=== PATIENT | female | born 1960 ===

== ENCOUNTER 2017-10-31 02:32 | Inpatient (IN) | payer BC ==
[2017-10-30 14:21] LABS: INR 1.06
[~2017-10-31] VITALS: Ht 167.6 cm; Wt 122.9 kg
[~2017-10-31 02:32] MED LIST: ASPI-1471 PO; ASPI-757 PO; CELE-1 PO; DIA5 PO; ESOM40CA42 PO; ESTR0.62 PO; GABA-549 PO; HYDR-4308 PO; OLME1TAB69 PO; OXYC-823 PO; [UNRECOGNIZED DRUG - CODE] PO
--- NOTE | 2017-10-31 04:43 | LEVENE H&P ---
DATE OF ADMISSION: October 31, 2017 IDENTIFICATION/CHIEF COMPLAINT The patient is a 57-year-old woman with a chief complaint of right knee pain. HISTORY OF PRESENT ILLNESS The patient has a longstanding history of knee arthritis, progressively painful and debilitating, refractory to conservative care. Surgery is indicated to relieve symptoms after failure of nonoperative measures. PAST MEDICAL HISTORY Notable for hypertension. PAST SURGICAL HISTORY Notable for contralateral knee replacement, rotator cuff surgery, hysterectomy, cholecystectomy, forearm surgery and several knee scopes. FAMILY HISTORY Notable for a mother with stroke. SOCIAL HISTORY Negative for tobacco and alcohol use. REVIEW OF SYSTEMS Noncontributory. CURRENT MEDICATIONS 1. Premarin 0.03 mg p.o. daily. 2. Tribenzor 525/10, one p.o. daily. 3. Aspirin 81 mg p.o. daily. ALLERGIES LATEX, has no true drug allergies. PHYSICAL EXAMINATION GENERAL: This is a well-developed, well-nourished female who appears stated age. HEENT: Normocephalic, atraumatic. NECK: Supple. LUNGS: Clear. HEART: Regular. ABDOMEN: Soft. ORTHOPEDIC EXAMINATION: The right knee has varus deformity. Her old portals are well sealed. She has an effusion present. She is stiff at the end range. Gross stability is good. Extensor function is intact. RADIOGRAPHIC DATA Radiographs demonstrate advanced degenerative changes. ASSESSMENT Right knee degenerative joint disease, progressively painful and debilitating, refractory to conservative care. PLAN Per patient request, will proceed with total knee arthroplasty. The nature of the procedure, the risks, benefits, the anticipated rehabilitative course were reviewed. Risks include but are not limited to , major medical or anesthetic complication, infection, neurovascular injury, blood transfusion, stiffness, scarring, fracture, tendon rupture, instability, implant loosening, migration or failure, persistent or recurrent pain, need for additional surgery and other unforeseen. She understands and wishes to proceed. A signed permit is placed in the chart. No guarantees are given or implied. MORIS
[2017-10-31 06:40] VITALS: BP 128/95
[2017-10-31] MEDS ORDERED: FAMOTIDINE 20 MG TAB PO ONE (08:15)
[2017-10-31] MEDS ORDERED: ceFAZolin(*) 2GM/D5W 50ML 50 ML IVPB ONE (08:15)
[2017-10-31] MEDS ORDERED: NORMOSOL R SOLN(*) 1000 ML BAG 1,000 ML IV PRN ×3 (08:15→11:20)
[2017-10-31] MEDS ORDERED: TRANEXAMIC AC 1000 MG/10ML SDV 1,000 MG in DEXTROSE 5% 50 ML BAG 50 ML IV ONE (08:15)
[2017-10-31] MEDS ORDERED: MIDAZOLAM 2 MG/2 ML VIAL IVP PRN (08:15)
[2017-10-31] MEDS ORDERED: cloNIDine EPIDUR INJ 100MCG/ML 40 MCG, ROPIVACAINE 0.5% 20 ML VIAL 25 ML, EPINEPHrine H... INJ ONE (08:15)
[2017-10-31] MEDS ORDERED: LIDOCAINE/SOD BICARB 8.4% SYR ID ONE (08:15)
[2017-10-31] MEDS ORDERED: fentaNYL CITR 100 MCG/2 ML AMP ONE ×3 (08:37→11:22)
[2017-10-31] MEDS ORDERED: MIDAZOLAM 2 MG/2 ML VIAL ONE (08:37)
[2017-10-31] MEDS ORDERED: PROPOFOL EMUL(*) 10MG/ML 20 ML 20 ML ONE (08:38)
[2017-10-31] MEDS ORDERED: DEXAMETHASONE SOD PHOS 10MG/ML ONE (08:38)
[2017-10-31] MEDS ORDERED: MORPHINE PF 5 MG/10 ML AMP ONE (08:38)
[2017-10-31] MEDS ORDERED: LIDOCAINE MPF 1% 5 ML VIAL ONE (08:38)
[2017-10-31] MEDS ORDERED: ONDANSETRON 4 MG/2 ML VIAL ONE (08:38)
[2017-10-31] MEDS ORDERED: ARTIFICIAL TEARS OINT 7 GM 7 GM TUBE ONE (09:09)
[2017-10-31] MEDS ORDERED: PHENYLEPHRINE 10 MG/1 ML VIAL ONE (09:20)
[2017-10-31] MEDS ORDERED: LACTATED RINGER 3000 ML BAG IR ONE (09:47)
[2017-10-31] MEDS ORDERED: diphenhydrAMINE 25 MG CAP PO PRN (11:05)
[2017-10-31] MEDS ORDERED: traMADol 50 MG TAB PO PRN (11:05)
[2017-10-31] MEDS ORDERED: ACETAMINOPHEN 325 MG TAB PO PRN (11:05)
[2017-10-31] MEDS ORDERED: FLUSH 10 ML SYR IVP PRN (11:05)
[2017-10-31] MEDS ORDERED: diphenhydrAMINE 50 MG/ML VIAL IVP PRN (11:05)
[2017-10-31] MEDS ORDERED: PROMETHAZINE 25 MG/ML 1 ML AMP IVP PRN (11:05)
[2017-10-31] MEDS ORDERED: BISACODYL 10 MG SUPP PR PRN (11:05)
[2017-10-31] MEDS ORDERED: BENZOCAINE/MENTHOL 1 EACH LOZG PO PRN (11:05)
[2017-10-31] MEDS ORDERED: ZOLPIDEM TARTRATE 5 MG TAB PO PRN (11:05)
[2017-10-31] MEDS ORDERED: MAGNESIUM HYDROXIDE* 30ML UDCP PO PRN (11:05)
[2017-10-31] MEDS ORDERED: NALBUPHINE HCL 10 MG/ML AMP IVP PRN (11:15)
[2017-10-31] MEDS ORDERED: ONDANSETRON 4 MG/2 ML VIAL IVP PRN (11:15)
[2017-10-31] MEDS ORDERED: NALOXONE HCL 0.4 MG/ML VIAL IVP PRN (11:15)
[2017-10-31] MEDS ORDERED: METOCLOPRAMIDE 10 MG/2 ML SDV IVP PRN (11:15)
[2017-10-31 11:56] VITALS: BP 105/51
[2017-10-31] MEDS: APAP/HYDROCODONE 325/7.5 TAB PO PRN ×3 (12:01→21:31)
[2017-10-31] MEDS ORDERED: ASPI-757 PO (12:14)
--- NOTE | 2017-10-31 13:46 | RADIOLOGY IMAGING REPORT ---
FACILITY: [facility] - [place], [place] PATIENT NAME: Nalini Hogan : 1960 MR: [id number] V: [id number] EXAM DATE: ORDERING PHYSICIAN: SHERICE OROZCO TECHNOLOGIST: Location: [facility] Patient: Nalini Hogan : 1960 Visit/Account:[id number] Date of Sevice: 10/31/2017 Technique: KNEE LIMITED RIGHT HISTORY: R TKA Comparison studies: None FINDINGS: Present is a right knee arthroplasty. There is no acute fracture. Overall, there is gross anatomic alignment. Expected adjacent postoperative changes are noted. IMPRESSION: 1. Right knee arthroplasty without evidence of acute hardware complication. Report Dictated By: Osmani Hurd DO at 10/31/2017 1:43 PM Report E-Signed By: Osmani Hurd DO at 10/31/2017 1:44 PM [id number]
[2017-10-31] MEDS: traMADol 50 MG TAB PO PRN ×2 (14:55→21:31)
[2017-10-31] MEDS: DIAZEPAM 5 MG TAB PO PRN (14:56)
--- NOTE | 2017-10-31 15:27 | Hospitalist Progress Note ---
Subjective Progress Notes Subjective No cp/sob. No concerns from the patient or staff. EBL minimal. 1700cc of crystalloid, TXA and dexamethasone given intra-op. Physical Exam Vital Signs Date Time Temp Pulse Resp B/P (MAP) Pulse Ox O2 Delivery O2 Flow Rate FiO2 10/31/17 11:56 97.6 82 12 105/51 (69) 93 Nasal Cannula 2.0 Intake and Output 11/01/17 07:00 Intake Total 1900 ml Output Total 10 ml Balance 1890 ml Intake IV Total 1900 ml Output Urine Total 10 ml General Appearance: Alert, Awake, No Acute Distress Cardiovascular: Regular Rate and Rhythm Respiratory: Clear to Auscultation Extremities: No Edema Assessment and Plan Problems: (1) S/P knee replacement Status: Acute Assessment & Plan: No CV/pulmonary issues. No reported history of DVT/PE. The patient will be on ASA 325mg a day for 30 days after surgery for blood clot prevention. (2) Benign hypertension Status: Chronic Assessment & Plan: Continue amlodipine, olmesartan, and HCTZ with parameters. (3) History of hysterectomy Status: Chronic Assessment & Plan: She chronically takes estrogen. The increased risk of DVT after surgery with estrogen use was explained to the patient. She wants to hold off taking the estrogen for now. (4) Severe obesity (BMI >= 40) Status: Chronic Problem Qualifiers (1) S/P knee replacement: Laterality: right Qualified Codes: Z96.651 - Presence of right artificial knee joint MARLEY CORDOBA MD Oct 31, 2017 15:27
[2017-10-31] MEDS: CELECOXIB 200 MG CAP PO SCH (17:24)
[2017-10-31] MEDS: ceFAZolin 1 GM VIAL IVP SCH (17:25)
[2017-10-31 20:00] VITALS: BP 98/58
[2017-10-31 21:00] VITALS: BP 101/65
[2017-10-31] MEDS: GABAPENTIN 300 MG CAP PO SCH (21:31)
[2017-10-31 23:26] VITALS: BP 109/63
[2017-11-01] MEDS: ceFAZolin 1 GM VIAL IVP SCH ×2 (01:43→08:34)
[2017-11-01] MEDS: APAP/HYDROCODONE 325/7.5 TAB PO PRN ×3 (01:52→21:33)
[2017-11-01] MEDS: DIAZEPAM 5 MG TAB PO PRN ×3 (04:20→18:05)
[2017-11-01 04:21] VITALS: BP 114/63
--- NOTE | 2017-11-01 04:26 | LEVENE TKA ---
EVENT DATE: October 31, 2017 SURGEON: Benjamin Bedoya MD ANESTHESIOLOGIST: Joshua Ibarra MD ANESTHESIA: General plus Spinal ACCOUNTS RECEIVABLE ACCOUNTANT: DAVID Jett SILO FILLER PREOPERATIVE DIAGNOSIS Right knee degenerative joint disease. POSTOPERATIVE DIAGNOSIS Right knee degenerative joint disease. PROCEDURE PERFORMED Right total knee arthroplasty. ESTIMATED BLOOD LOSS Minimal. DRAINS None. SPECIMENS None. COMPLICATIONS No apparent. TOURNIQUET TIME 41 minutes. IMPLANTS USED REach Triathlon knee system, a 4 right PS femur, a 4 standard tibial baseplate , a 33 mm universal symmetric all polyethylene patella button and an 11 mm PS tibial tray liner. Polyethylene is X3. INDICATIONS The patient has bilateral knee arthritis. She has had successful contralateral knee replacement. She has persistent debilitating pain in the right knee that has failed to respond to conservative care. Surgery is indicated to relieve symptoms after failure of nonoperative measures. DESCRIPTION OF PROCEDURE The patient was taken to the operating room and placed supine on the operating table. General anesthesia was induced after spinal block was administered by the anesthesiologist. Antibiotics and TXA were administered IV. Right lower extremity was prepped and draped in the usual sterile fashion for knee arthroplasty. The limb was exsanguinated with an Esmarch bandage. The tourniquet was inflated to 275 mmHg. A midline longitudinal incision was made, carried down through the skin and subcutaneous tissue to the extensor mechanism. A full-thickness flap was developed far enough medially to allow medial parapatellar arthrotomy to be performed. The patella was everted. The knee was brought into a flexed position. The fat pad, anterior horns of the menisci and the cruciate ligaments were debrided. Subperiosteal capsule release was performed 1 cm around the upper plateau. A step drill was used to enter the distal femur. A 10-inch long alignment guide was used to engage the isthmus. Cut was set for 6 degrees valgus relative to the anatomic axis. A 10 mm resection block was applied, pinned. Cut was made with an oscillating saw. AP sizing guide was applied to the distal femur, positioned for 3 degrees of external rotation relative to the posterior condyles. A size 4 was optimal without risk of notching. The four-in-one cutting block was applied. Anterior , posterior, posterior chamfer and anterior chamfer cuts were made respectively. A PS block was applied, centered mediolateral. Bone was removed for the box. The trial femur had nice [id number] fit. Attention was turned to tibial preparation. The extramedullary guide was applied, positioned for varus, valgus, posterior slope and rotation. This was set to resect 9 mm from the relatively intact lateral tibial plateau. It was dropped down a couple of millimeters to ensure an adequate cut. The block was pinned. Extramedullary check was made and the cut was made with an oscillating saw. After osteophyte removal, gaps were balanced and symmetric with no additional releases required. A bit of posterior condylar bone was removed in the back to open up the posterior recess. The 4 tibial baseplate provided optimum bony coverage without soft tissue overhang. This was inserted along with a trial liner, trial femur. Knee was brought to extension. Patella was taken from a starting thickness of 20 at its thickest point to 15 with a patellar clamp and oscillating saw. The 33 provided optimum bony coverage without soft tissue overhang. Lug holes were drilled. The patella tracks nicely with the no-touch technique. No release will be required. Final tibial preparation was performed next. Position of the component was set for translation, rotation, and the keel was punched and the box was reamed. The pain cocktail was then infiltrated throughout the wound. Bone plug was placed in the femoral canal. A mix of polymethylmethacrylate was made and the components were cemented in a single stage. Once cement was fully polymerized, tourniquet was deflated. Hemostasis was ensured. The wound was copiously lavaged. The 11 PS tibial tray liner fills up the gap ideally, allowing the knee to drop to full extension without hyperextension, providing optimal soft tissue tension. The tray was lavaged and dried, and the actual liner was locked into the base plate. Joint was reduced. Arthrotomy was closed in flexion with #2 Ethibond, subcu with 3-0 Vicryl and skin with surgical reza. Xeroform was applied followed by a dry, sterile dressing and a compression wrap. The patient was awakened from the anesthesia and taken to the recovery room in stable condition , having tolerated the procedure well. Plan is for standard TK rehab protocol. [facility]
[2017-11-01 07:20] VITALS: BP 109/71
--- NOTE | 2017-11-01 07:57 | Hospitalist Progress Note ---
Subjective Progress Notes Subjective No cp/sob. No concerns from patient or staff. Physical Exam Vital Signs Date Time Temp Pulse Resp B/P (MAP) Pulse Ox O2 Delivery O2 Flow Rate FiO2 11/01/17 07:40 93 Nasal Cannula 0.5 11/01/17 07:20 97.8 74 20 109/71 (84) Intake and Output 11/02/17 07:00 # Voids 1 General Appearance: Alert, Awake, No Acute Distress Respiratory: Clear to Auscultation Assessment and Plan Problems: (1) S/P knee replacement Status: Acute Assessment & Plan: No CV/pulmonary issues. No reported history of DVT/PE. The patient will be on ASA 325mg a day for 30 days after surgery for blood clot prevention. (2) Benign hypertension Status: Chronic Assessment & Plan: Continue amlodipine, olmesartan, and HCTZ with parameters. (3) History of hysterectomy Status: Chronic Assessment & Plan: She chronically takes estrogen. The increased risk of DVT after surgery with estrogen use was explained to the patient. She wants to hold off taking the estrogen for now. (4) Severe obesity (BMI >= 40) Status: Chronic Exam Sepsis Risk: No Definite Risk Problem Qualifiers (1) S/P knee replacement: Laterality: right Qualified Codes: Z96.651 - Presence of right artificial knee joint MARLEY CORDOBA MD Nov 01, 2017 07:57
[2017-11-01] MEDS: amLODIPine BESYL(*) 5 MG TAB PO SCH (08:32)
[2017-11-01] MEDS: ASPIRIN 325 MG TAB PO SCH (08:32)
[2017-11-01] MEDS: HYDROCHLOROTHIAZIDE 25 MG TAB PO SCH (08:32)
[2017-11-01] MEDS: GABAPENTIN 300 MG CAP PO SCH ×2 (08:33→21:33)
[2017-11-01] MEDS: traMADol 50 MG TAB PO PRN ×3 (08:33→18:05)
[2017-11-01] MEDS: OLMESARTAN 20 MG TAB PO SCH (08:33)
[2017-11-01] MEDS: CELECOXIB 200 MG CAP PO SCH ×2 (08:33→17:03)
[2017-11-01 09:12] VITALS: Ht 167.6 cm; Wt 122.9 kg
[2017-11-01 17:05] VITALS: BP 127/80
[2017-11-01 19:32] VITALS: BP 129/80
[2017-11-01 22:54] VITALS: BP 134/45
[2017-11-02] MEDS: DIAZEPAM 5 MG TAB PO PRN ×2 (00:27→08:45)
[2017-11-02] MEDS: traMADol 50 MG TAB PO PRN ×2 (00:27→08:44)
[2017-11-02 03:02] VITALS: BP 136/63
[2017-11-02] MEDS: APAP/HYDROCODONE 325/7.5 TAB PO PRN (04:12)
--- NOTE | 2017-11-02 06:30 | Hospitalist Progress Note ---
Subjective Progress Notes Subjective No complaints this AM. She is planning on DC today. Physical Exam Vital Signs Date Time Temp Pulse Resp B/P (MAP) Pulse Ox O2 Delivery O2 Flow Rate FiO2 11/02/17 04:13 86 11/02/17 03:02 98.6 89 16 136/63 (87) Nasal Cannula 1.0 General Appearance: Alert, Awake Assessment and Plan Problems: (1) S/P knee replacement Status: Acute Assessment & Plan: Stable post-op. She will be on ASA 325mg a day for 30 days after surgery for blood clot prevention. (2) Benign hypertension Status: Chronic Assessment & Plan: Continue amlodipine, olmesartan, and HCTZ. (3) History of hysterectomy Status: Chronic Assessment & Plan: She chronically takes estrogen. The increased risk of DVT after surgery with estrogen use was explained to the patient. She wants to hold off taking the estrogen for now. (4) Severe obesity (BMI >= 40) Status: Chronic Exam Sepsis Risk: No Definite Risk Problem Qualifiers (1) S/P knee replacement: Laterality: right Qualified Codes: Z96.651 - Presence of right artificial knee joint MELANIE ROMERO MD Nov 02, 2017 06:30
[2017-11-02 07:30] VITALS: BP 128/69
[2017-11-02] MEDS: amLODIPine BESYL(*) 5 MG TAB PO SCH (08:44)
[2017-11-02] MEDS: ASPIRIN 325 MG TAB PO SCH (08:44)
[2017-11-02] MEDS: GABAPENTIN 300 MG CAP PO SCH (08:44)
[2017-11-02] MEDS: CELECOXIB 200 MG CAP PO SCH (08:44)
[2017-11-02] MEDS: HYDROCHLOROTHIAZIDE 25 MG TAB PO SCH (08:46)
[2017-11-02] MEDS: OLMESARTAN 20 MG TAB PO SCH (08:46)
[2017-11-02] MEDS ORDERED: HYDR-4309 PO (09:07)
[2017-11-02] MEDS ORDERED: TRAM-420 PO ×2 (09:10→09:21)
[2017-11-02] MEDS ORDERED: DIA5 PO (09:12)
[2017-11-02] MEDS ORDERED: GABA-490 PO (09:14)
[2017-11-02] MEDS ORDERED: CELE-1 PO (09:17)
== END 2017-11-02 10:15 | disposition home or self-care (01) | DRG 470 ==
LOC: OR 02:32 → MED 11:50
PROVIDERS: ADMIT Orthopaedic Surgery; ATTEND Orthopaedic Surgery
PROC: 0SRC0J9 Replacement of Right Knee Joint with Synthetic Substitute, Cemented, Open Approach (ICD-10-PCS; principal; 2017-10-31 08:59)
DX: M17.11 Unilateral primary osteoarthritis, right knee (principal); Z68.41 Body mass index [BMI] 40.0-44.9, adult; I10 Essential (primary) hypertension; M21.161 Varus deformity, not elsewhere classified, right knee; K21.9 Gastro-esophageal reflux disease without esophagitis; E66.01 Morbid (severe) obesity due to excess calories; Z96.652 Presence of left artificial knee joint; Z90.710 Acquired absence of both cervix and uterus; Z90.49 Acquired absence of other specified parts of digestive tract; Z91.040 Latex allergy status
CPT/HCPCS: 36415; 85610; 86850; 86900; 86901; 97161; C1713; C1776; J0171; J0690; J0735; J1100; J1885; J2001; J2250; J2270; J2370; J2405; J2704; J2795; J3010; J7050; J7060